=== PATIENT | female | born 1955 | race Caucasian/White ===

== ENCOUNTER 2018-11-16 00:20 | Outpatient (CLI) | payer BC, SELFPAY ==
--- NOTE | 2018-11-16 12:50 | DI.MAMMO_ITS ---
SYMPTOMS/DIAGNOSIS: SCREENING, Z12.31 MAMMOGRAM: Mammograms were interpreted according to the usual protocol including computer analysis with CAD system, tomosynthesis and C view imaging. The breasts are of moderate density with fairly symmetrical distribution of fibroglandular tissue. No dominant mass or clumped microcalcification identified in either breast. Current examination is compared with the previous examinations including July 2017 and there has been no gross interval change in appearance in comparison with the previous studies. CONCLUSION: No specific evidence of malignancy at this time. Routine screening examinations are suggested at yearly intervals due to the family history of breast carcinoma. Category 1, breast density category B. MQSA ASSESSMENT OF FINDINGS: Negative. Category 1. Patient will receive a letter notifying them of these results. BI-RADS category B. There are scattered areas of fibroglandular density.
== END 2018-11-16 00:40 ==
PROVIDERS: PCP Family Medicine; Visit Provider Family Medicine
DX: Z12.31 Encounter for screening mammogram for malignant neoplasm of breast (principal); Z80.3 Family history of malignant neoplasm of breast
CPT/HCPCS: 77063; 77067

== ENCOUNTER 2020-05-16 01:14 | Outpatient (CLI) | payer OTHER, SELFPAY ==
--- NOTE | 2020-05-16 | DI.MAMMO_ITS ---
EXAM: MG MAMMO SCREENING CLINICAL HISTORY: SCREENING, Z12.31. TECHNIQUE: Bilateral full field digital CC and MLO mammographic images were obtained with 3D tomosyn thesis and utilizing computer aided detection (CAD). COMPARISON: Prior mammograms dating back to 2011, the most recent being October 2018. Significant fa damien history. Her mother was diagnosed with breast cancer as was her maternal aunt, both postmenopau martha. FINDINGS: There are no CAD designations. In the left breast on 3D imaging there is a small 4 x 3 millimeter nodule located 4 cm in from the n ipple below the midline and slightly medial of center . This slightly lobulated well-defined nodule exhibits a tiny benign-appearing microcalcification therein. In the opposite-right breast 3D MLO pretty ging there is another similar size nodule evident approximately 4 cm in from the nipple. There are n o malignant-appearing microcalcifications in either breast. There is no significant architectural di stortion nor skin thickening-retraction. IMPRESSION: Single small nodule in each breast. Spot compression views and ultrasound recommended. BI-RADS Category 0 - Assessment Incomplete: Need additional imaging evaluation Breast Density - Category B - Scattered areas of fibroglandular density Breast density Category C or D implies that the patient has dense breast tissue. Dense breast tissue can make it harder to find cancer on a mammogram. Dense breast tissue is also associated with an incr eased risk of breast cancer. This information about the result of the mammogram report was provided to the patient to raise their awareness. Use this report when you speak with the patient about their risks for breast cancer, which includes their family history. At that time, you may recommend additional screening tests (Ultrasoun d or MRI) as these tests may add significant information. A negative radiographic report should not delay biopsy if a dominant or clinically suspicious mass is present. Up to ten percent of cancers are not identified on mammography. A negative report may reinforce clinical impression. Adenosis and dense breasts may obscure an underlying neoplasm. False positive reports average 6 to 10%. Patient will receive a letter notifying them of these results.
== END 2020-05-16 01:15 ==
LOC: DI 01:14
PROVIDERS: PCP Family Medicine; Visit Provider Family Medicine
DX: Z12.31 Encounter for screening mammogram for malignant neoplasm of breast (principal); R92.8 Other abnormal and inconclusive findings on diagnostic imaging of breast
CPT/HCPCS: 77063; 77067

== ENCOUNTER 2020-05-24 03:07 | Outpatient (CLI) | payer OTHER, SELFPAY ==
--- NOTE | 2020-05-24 | DI.MAMMO_ITS ---
EXAM: MG MAMMO SCREEN CALL BACK BI CLINICAL HISTORY: F/U MAMMO, LT BREAST NODULE, RT BREAST NODULE TECHNIQUE: Spot compression views and tomographic imaging were performed of both breasts.. COMPARISON: Exams from 2012 through 2019. FINDINGS: Cc and MLO spot-compression views performed bilaterally for small areas of nodularity. Left breast: There is a small nodule in the medial left breast with the small fatty hilum, consistent with an intramammary lymph node.No suspicious masses or suspicious microcalcifications are seen. Th ere has been no significant change from previous exams. Right breast: There is a small persistent circumscribed nodule with a central fatty hilum, consistent with an intramammary lymph node. This appears stable from recent exams. IMPRESSION: BI-RADS Category 2 - Benign Findings Yearly screening mammography is recommended. Breast Density - Category B, scattered fibroglandular densities.
== END 2020-05-24 03:08 ==
LOC: DI 03:07
PROVIDERS: PCP Family Medicine; Visit Provider Family Medicine
DX: Z12.31 Encounter for screening mammogram for malignant neoplasm of breast (principal); R92.8 Other abnormal and inconclusive findings on diagnostic imaging of breast; R59.0 Localized enlarged lymph nodes
CPT/HCPCS: 77063; 77067

== ENCOUNTER 2020-06-28 06:21 | Day surgery (SDC) | payer OTHER, SELFPAY ==
[2020-06-28 06:40] VITALS: BP 157/78; PULSE 66; RESP 16; TEMP 36.3; O2SAT 98
[2020-06-28] MEDS: Tropicam./Phenyleph. (1/2.5%) 5 ML BTL OS ×3 (06:47→07:01)
[2020-06-28] MEDS: Tetracaine 0.5% 4 ML BTL OS (07:25)
[2020-06-28] MEDS: Povidone-Iodine Ophth 30 ML BTL (07:26)
[2020-06-28] MEDS: Lidocaine 1% Pres-Free 5 ML VIAL (07:33)
[2020-06-28] MEDS: Duovisc Viscoelastic System EACH 1 EACH (07:37)
[2020-06-28] MEDS: Lidocaine 2% Jelly 6 ML SYR (07:37)
[2020-06-28] MEDS: Balanced Salt Soln.-PLUS 500 ML BAG (07:37)
--- NOTE | 2020-06-28 08:00 | W.PM.DSUDISC ---
Discharge Plan Disposition Patient Disposition: HOME Condition: Good Discharge Details Attending Provider: Krishna Gregg Primary Care Provider: Nika Coker Home Meds and New Rx's Prescriptions: No Action cholecalciferol (vitamin D3) 1,000 UNIT capsule 1,000 unit PO DAILY RF: 0 multivitamin [Daily Multi-Vitamin] 1 EACH tablet 1 ea PO DAILY RF: 0 aspirin 325 MG tablet 325 mg PO DAILY RF: 0 atenolol 50 MG tablet 50 mg PO DAILY RF: 0 atorvastatin 80 MG tablet 80 mg PO DAILY RF: 0 famotidine 40 mg tablet 40 mg PO DAILY PRNRF: 0 metformin 500 mg tablet extended release 24 hr 1,000 mg PO BID RF: 0 losartan 25 mg tablet 25 mg PO DAILY RF: 0 Discharge Instructions Stand Alone Forms: Post-op Topical Cataract, Yakov Orozco (DSU) Discharge Orders Discharge Orders: Discharge Order (Routine); Ordered 06/28/20 Ordered By: Krishna Gregg DS: Diagnosis Discharge Diagnosis (1) Posterior subcapsular age-related cataract of left eye: Status: Resolved (2) Nuclear sclerotic cataract of left eye: Status: Resolved (3) Cortical cataract of left eye: Status: Resolved
--- NOTE | 2020-06-28 08:01 | ROE_ITS ---
Date of service: 06/28/20 Time of Service: 08:01 Operative Note Operative Note DATE OF PROCEDURE: 06/28/20 PRE-OP DIAGNOSIS: Nuclear/cortical/posterior subcapsular cataract, left eye POST-OP DIAGNOSIS: same PROCEDURE: Cataract extraction using phacoemulsification with intraocular lens implant, left eye SURGEON: Krishna Gregg ANESTHESIA TYPE: Local By Surgeon and MAC Refer to Anesthesia Record PATHOLOGY: none sent COMPLICATIONS: None Patient was transported to: same day Patient's condition: stable Implants: [employer] / [employer] Tecnis [id number] Indications: Progressive decreased vision due to cataract, left eye Procedure Description: CATARACT SURGERY OPERATIVE REPORT PREOPERATIVE DIAGNOSIS: Nuclear/cortical/posterior subcapsular cataract, left eye POSTOPERATIVE DIAGNOSIS: Same OPERATION: Cataract extraction using phacoemulsification with posterior chamber intraocular lens implant, left eye. IOL: IOL Critical Care Physician/Model: [employer] / ASHLYN Tecnis [id number] IOL Power: + 20.0 diopters IOL Serial Number: [id number] Optic Diameter: 6.0mm Haptic/Overall Diameter: 13.0mm PHACO INFO: Ike [employer] Vision System with OZil and Active [employer]uid[employer] Cumulative Dispersed Energy (CDE): 10.3 seconds SURGEON: Krishna Gregg MD, ISAAC ANESTHESIA: Monitored Anesthesia Care (MAC), with local sub-tenon's anesthetic infiltration COMPLICATIONS: None SPECIMENS: None INDICATIONS FOR PROCEDURE: The patient is a 65-year-old lady with history of diminished visual acuity in her left eye. She is noted to have a significant nuclear/cortical/posterior subcapsular cataract in the left eye. The option of cataract surgery was offered to the patient and she felt she was symptomatic enough that she wished to proceed. PROCEDURE: The correct surgical eye was identified and marked as the left eye and the pupil was dilated in the preoperative area using mydriatics and cycloplegics. The dilated pupil size was 6.0 mm. Oral sedation was administered in the form of an Imprimis MKO Melt (midazolam 3mg/ketamine 25mg/ondansetron 2mg). The patient was brought to the operating room where cardiopulmonary monitoring was instituted and surgical time-out was performed, confirming the correct operative eye and IOL power. Topical anesthesia was administered and ophthalmic povidone-iodine 5% was instilled into the conjunctival fornices. Lidocaine gel was applied to the cornea and the lilian-ocular area was prepped with Betadine 10% solution and draped in the usual sterile fashion for intraocular surgery, including an aperture drape. A Tegaderm transparent film dressing was cut in half and used to cover the lashes and lid margins. Care was taken to sequester the lashes and lid margins under the Tegaderm dressing. A lid speculum was placed between the lids of the operative eye and the Juan-Shabnam operating microscope was maneuvered into position. Leon scissors were then used to make a conjunctival buttonhole approximately 6mm posterior to the limbus in the inferonasal quadrant. Blunt dissection was carried out to expose bare sclera, and a blunt-tipped sub-tenon?s anesthesia cannula was introduced and passed posteriorly along the globe where non- preserved plain lidocaine was injected into posterior sub-Tenon?s space. A sideport knife was used to make a paracentesis port superior/superiortemporally. Intraocular phenylephrine/lidocaine was injected into the anterior chamber. The anterior chamber was then filled with viscoelastic. A 2.4mm keratome knife was used to create a half-thickness groove at the limbus and then to construct a three-plane near-clear corneal tunnel extending 2.0mm into clear cornea in the temporal position. . A flap was raised on the anterior capsule and capsulorhexis forceps were used to complete a continuous curvilinear capsulorhexis of 5.5 mm. Balanced salt solution was then used to perform cortical cleaving hydrodissection and nuclear hydrodelineation until the lens could be freely rotated within the capsular bag. The lens nucleus was then disassembled and removed within the capsular bag and iris plane using phacoemulsification. Residual cortical material was removed using the 45-degree angled silicone I/A tip with 0.3mm port. The posterior capsule was carefully polished to remove as much residual lens epithelial cells as safely possible. The capsular bag was then inflated and the anterior chamber deepened with viscoelastic. The lens implant described above was inserted into the capsular bag using the ASHLYN [employer] Injector. A Kuglen hook was used to dial the IOL into position. Residual viscoelastic was then removed first from posterior to the IOL, then from the anterior chamber using the I/A handpiece. The lens implant was noted to center nicely within the capsular bag. The incisions were stromally hydrated, and the anterior chamber was reformed using BSS. Then 0.5cc of moxifloxacin 1.0mg/ml were injected into the capsular bag and anterior chamber. The incisions were checked with a Weck spear and found to be secure. Several drops of ophthalmic povidone-iodine 5% were then applied to the eye followed by two drops of Imprimis combination prednisolone/moxifloxacin/nepafenac solution. The drapes were removed and a clear plastic protective eye shield was placed over the eye. The patient was then returned to Same Day Surgery in stable condition.
[2020-06-28 08:31] VITALS: BP 130/67; PULSE 53; RESP 16; TEMP 36.7; O2SAT 97
== END 2020-06-28 08:36 | disposition home or self-care (01) ==
PROVIDERS: PCP Family Medicine; Visit Provider Ophthalmology
PROC: (CPT 66984; principal; 2020-06-28 07:30)
DX: H25.12 Age-related nuclear cataract, left eye (principal); H25.042 Posterior subcapsular polar age-related cataract, left eye; H25.012 Cortical age-related cataract, left eye; I10 Essential (primary) hypertension
CPT/HCPCS: 66984; V2632

== ENCOUNTER 2020-08-16 09:05 | Day surgery (SDC) | payer OTHER, SELFPAY ==
[2020-08-16 09:15] VITALS: BP 148/73; PULSE 76; RESP 18; TEMP 36.6; O2SAT 99
[2020-08-16] MEDS: Lactated Ringers 1,000 ML 80 ML IV (09:27)
--- NOTE | 2020-08-16 10:11 | W.ANESPRE ---
General Info Date of Service Date Performed: 08/16/20 Height: 5 ft 3.5 in Weight: 83 kg Body Mass Index (BMI): 31.8 Surgical Procedure: Operation Date: 08/16/20 10:35 Proposed Procedures Side Surgeon norman Luna, Meds Allergies and Home Medications Allergies Allergy/AdvReac Type Severity Reaction Status Date / Time Penicillins Allergy Severe Skin Rash Unverified 08/16/20 09:19 lisinopril AdvReac Mild Verified 08/16/20 09:19 Home Medication Medication Instructions Recorded cholecalciferol (vitamin D3) 1,000 unit PO DAILY 11/16/12 multivitamin [Daily Multi-Vitamin] 1 ea PO DAILY 07/02/14 aspirin 325 mg PO DAILY tab-cap 10/03/15 atenolol 50 mg PO DAILY tab-cap 10/03/15 atorvastatin 80 mg PO DAILY tab-cap 10/03/15 famotidine 40 mg tablet 40 mg PO DAILY PRN 05/29/20 losartan 25 mg tablet 25 mg PO DAILY 05/29/20 metformin 500 mg tablet,extended 1,000 mg PO BID tab-cap 05/29/20 release 24 hr ascorbic acid (vitamin C) 500 mg 500 mg PO DAILY 08/08/20 capsule bisacodyl 5 mg tablet,delayed 5 mg PO ONCE #4 tab 08/08/20 release polyethylene glycol 3350 17 238 g PO ONCE #238 g 08/08/20 gram/dose oral powder Current Visit Medications: Current Medications Generic Name Dose Route Start Last Admin Trade Name Freq PRN Reason Stop Dose Admin Hyoscyamine Sulfate 0.125 mg 08/15/20 23:50 Hyoscyamine 0.125 Mg Sl/Oral/Chew SL DIRECTED PRN Ringer's Solution 1,000 mls @ 80 mls/hr 08/16/20 06:00 08/16/20 09:27 IV 09/14/20 23:59 80 mls/hr INFUSION ROSAS Administration IV Miscellaneous Supplies 1 each 08/16/20 06:00 Iv Access IV 09/14/20 23:59 DIRECTED ROSAS Ondansetron HCl 4 mg 08/15/20 23:50 Ondansetron 4 Mg/2 Ml Vial IVP Q4H PRN PRN Nausea / Vomiting Sodium Chloride 0 ml 08/16/20 06:00 Normal Saline Flush 10 Ml Syr IV 09/14/20 23:59 PRN PRN Sodium Chloride 0 ml 08/16/20 06:00 Normal Saline 10 Ml Vial IJ 09/14/20 23:59 DIRECTED PRN Sterile Water 0 ml 08/16/20 06:00 Water,Injection,Sterile 10 Ml Vial IJ 09/14/20 23:59 DIRECTED PRN PFSH Active Problems Active Problems: Problem Status Onset Code Cortical cataract of left eye H26.9 Nuclear sclerotic cataract of left eye H25.12 Posterior subcapsular age-related cataract of left eye H25.042 Medical History Medical History Benign hypertension Endometrial cancer GERD (gastroesophageal reflux disease) History of adenomatous polyp of colon Hyperlipidemia Hypertension Type II diabetes mellitus Surgical History Surgical History History of colonoscopy (~2014) Hx of cataract removal with insertion of prosthetic lens Hysterectomy, Laproscopic endometrial ca Oophrectomy, Both Tobacco Smoking/Tobacco Use Status: Former Tobacco Use Alcohol Alcohol Intake: never Substance Use Substance use: Never Substance use type: does not use Vital Signs and Lab Results Vital Signs Most Recent Vital Signs in EMR: Most Recent Vital Signs Temp Pulse Resp BP Pulse Ox 36.6 C 76 18 148/73 H 99 08/16/20 09:15 08/16/20 09:15 08/16/20 09:15 08/16/20 09:15 08/16/20 09:15 Point of Care Results Point of Care Results: Finger Stick Blood Glucose 115 08/16/20 09:41 Lab Results Blood Type / Crossmatch: No Data to Display Complete Blood Count: No Data to Display Complete Metabolic Panel: No Data to Display Liver Function Panel: No Data to Display Coagulation Panel: No Data to Display Cardiac Panel: No Data to Display Arterial Blood Gas: No Data to Display Venous Blood Gas: No Data to Display Pancreas Panel: No Data to Display Thyroid Panel: No Data to Display Infectious Disease: No Data to Display Blood Cultures: No Data to Display Toxicology Panel: No Data to Display Anesthesia Assessment and Plan Anesthesia History Personal History: No History of Anesthesia Complications Family History: No Family History of Anesthesia Complications Exercise Tolerance Exercise Tolerance: Metabolic Equivalents>4 Pertinent Negatives Pertinent Negatives: No Symptoms of GERD (Mostly resolved, rare symptoms) Cardiac & Pulmonary Exam Cardiac Exam: Normal S1/S2 Heart Sounds Pulmonary Exam: Clear Bilateral Breath Sounds Airway Exam Known Difficult Airway: No Mallampati Class: 1 Mouth Opening: Normal (> 3cm) Thyromental Distance: Greater than 3 cm Neck Range of Motion: Full ROM Neck Circumference: Normal Teeth Condition: Advised tooth loss possible given current condition (indicate tooth) ASA Classification ASA Score: ASA 2 Emergency Case?: No NPO Status NPO Status: NPO Clears >2 hours, Solids >8 hours Anesthesia Plan Resuscitation Status: Full Code Anesthesia Technique: General Anesthesia Airway Planned: Natural Airway Monitors Used: Standard Monitors
[2020-08-16 10:13] VITALS: BMI 31.8
--- NOTE | 2020-08-16 11:30 | W.COLOREPORT ---
Date of service: 08/16/20 Time of Service: 11:30 Colonoscopy Report Date of procedure: 08/16/20 Pre-op diagnosis general: A. polyps/+family Hx CRC Retraction Time: 10 Procedure Description: After informed consent was obtained the patient was taken to the procedure room and placed in a left decubitous position. Monitors were applied and a time out was done. The patients name, date of , procedure, allergies to medications and metal in their body was reviewed. The patient was then sedated. Once sedated and comfortable a rectal exam was done. External hemorrhoids ntoed. Internal exam revealed a normal sphincter tone and no palpable masses. The scope was then introduced and retrofelexed. No internal hemorrhoids were identified. The scope was then advanced to the cecum w/out difficulty. The TI and appendiceal orifice were identified. The prep was good. The scope was then slowly retracted over 10 minutes back into the rectum. She had x2 small, less than 5 mm, flat polyps that were removed. 1 is at 30 cm and 1 is at the rectum. These are both removed with a cold biting forcep. All specimen is retrieved and no bleeding is noted. She does have moderate diverticular disease this is mostly concentrated in the sigmoid colon. But she does have a few small scattered diverticuli do carry all the way over to the right side. There is no signs of active bleeding or infection.. The scope was removed and the patient was woken up and taken back to Same day surgery in stable condition. The patient tolerated the procedure well and there were no immediate complications. Follow up: The patient should follow up in 5 years unless they develop changes in bowel habits or other new gastrointestinal complaints.
--- NOTE | 2020-08-16 11:45 | BOWEL_PTH ---
PATIENT: Dulce Wei LOC: [facility] U#:[id number] AGE/SX: 65/F ROOM: RE08/16/[address]: Lissette Luna : 1955 BED: DIS: 08/16/2020 SPEC #: [id number] RECD: 08/16/20 12:27 STATUS: ANETTE REMine #: [id number] ANEUDY: 08/16/20 11:[address]: Lissette Luna DEPT: Surgical Specimen RECD BY: Brisa Wilcox ENTERED: 08/16/20 12:29 SP TYPE: Bowel OTHR DR: Nika Coker Tissues: 1 - BIOPSY BOWEL 2 - BIOPSY BOWEL Procedures: GROSS AND MICRO LEVEL 4 Comments: [id number]
[2020-08-16 12:00] VITALS: BP 115/54; PULSE 63; RESP 16; TEMP 36.5; O2SAT 96
--- NOTE | 2020-08-16 12:05 | W.ANESPOSTOP ---
Postoperative Evaluation Date, Time and Location Date Performed: 08/16/20 Time Performed: 12:05 Patient Location: Day Surgery Unit Vital Signs Most Recent Imported Vital Signs: Most Recent Vital Signs Temp Pulse Resp BP Pulse Ox 36.6 C 76 18 148/73 H 99 08/16/20 09:15 08/16/20 09:15 08/16/20 09:15 08/16/20 09:15 08/16/20 09:15 Most Recent Manually Entered Vital Signs: Adult Blood Pressure: 115/54 Heart Rate: 63 Respirations: 16 Oxygen Saturation (%): 97 Temperature (C): 36.5 C Pain Score (0-10 Scale): 0 Assessment Mental Status: Awake (Alert & Oriented to Patient Baseline) Airway and Respiratory Function: Patent airway with normal (patient baseline) respiratory exam Cardiovascular Function: Hemodynamically Stable Hydration Status: Adequately Hydrated Nausea & Vomiting: No Nausea or Vomiting Pain: Pt. Denies Any Pain Peripheral Nerve Block: Patient did not receive a nerve block
[2020-08-16 12:06] VITALS: BP 115/54; PULSE 63; RESP 16; TEMPC 36.5; O2SAT 97
--- NOTE | 2020-08-16 12:15 | W.PM.DSUDISC ---
Discharge Plan Disposition Patient Disposition: HOME Condition: Good Discharge Details Reason For Visit: colon scope Attending Provider: Lissette Luna Primary Care Provider: Nika Coker Home Meds and New Rx's Prescriptions: Continued ascorbic acid (vitamin C) 500 mg capsule 500 mg PO DAILY RF: 0 cholecalciferol (vitamin D3) 1,000 UNIT capsule 1,000 unit PO DAILY RF: 0 multivitamin [Daily Multi-Vitamin] 1 EACH tablet 1 ea PO DAILY RF: 0 atenolol 50 MG tablet 50 mg PO DAILY RF: 0 atorvastatin 80 MG tablet 80 mg PO DAILY RF: 0 famotidine 40 mg tablet 40 mg PO DAILY PRNRF: 0 metformin 500 mg tablet extended release 24 hr 1,000 mg PO BID RF: 0 losartan 25 mg tablet 25 mg PO DAILY RF: 0 Discontinued bisacodyl [Dulcolax (bisacodyl)] 5 mg tablet,delayed release (DR/EC) 5 mg PO ONCE Qty: 4 RF: 0 polyethylene glycol 3350 17 gram/dose powder 238 g PO ONCE Qty: 238 RF: 0 aspirin 325 MG tablet 325 mg PO DAILY RF: 0 Discharge Instructions Additional Instructions: [facility] Colonoscopy Post-Op Instructions Instructions for Everyone who is given Anesthesia: For your safety, please do the following for the next twenty-four (24) hours: *Do Not operate a motor vehicle (car, truck, motorcycle, etc.) *Do Not drink alcoholic beverages or use any recreational drugs for the first 24 hours or while taking pain medications. The medications in your body may have a reaction that can be dangerous. *Do Not make any important decisions or sign any important papers. Findings: x2 small polyps Diverticula No ASA/NSAID's x 5 yrs Follow up: Repeat in 5 yrs time 1. No lifting over 20 pounds or strenuous activity for the first 24 hours after your procedure. After 24 hours there are no restrictions on your activity but you may feel fatigued for a few days. 2. After you arrive home you may have a light meal and return to your normal diet as you can tolerate it without feeling sick to your stomach. 3. You may have a bloated, gaseous feeling in your belly (abdomen) after a colonoscopy. Passing gas and belching will help. Walking or lying down on your left side with your knees flexed may relieve the discomfort. Call the office at [phone] (Office) or [phone] (Hospital) right away if you notice any of the following: a.Vomiting of blood or ?coffee ground stools?. b.Rectal bleeding 1Tbsp, blood clots or continuous bleeding. c.Severe belly (abdominal) pain. d.A hard distended belly (abdomen) and an inability to pass gas. 4. Please don?t expect to have a normal BM (bowel movement) for 2-3 days after your procedure. 5. If there are questions regarding the findings of your procedure, please contact your doctor 6. If you are unable to contact your doctor with a problem, contact the hospital at [phone]. 7. Continue all your regular medications unless directed otherwise. I understand the above instructions and have no questions. Signature of Patient or Adult Escort Name of Responsible Adult Escort Signature of Nurse Date/Time DIVERTICULAR DISEASE OVERVIEW???A diverticulum is a pouch-like structure that can form through points of weakness in the muscular wall of the colon (ie, at points where blood vessels pass through the wall). Diverticulosis affects men and women equally. The risk of diverticular disease increases with age. It occurs throughout the world but is seen more commonly in developed countries. WHAT IS DIVERTICULAR DISEASE? Diverticulosis???Diverticulosis merely describes the presence of diverticula. Diverticulosis is often found during a test done for other reasons, such as flexible sigmoidoscopy, colonoscopy, or barium enema. Most people with diverticulosis have no symptoms and will remain symptom free for the rest of their lives. A person with diverticulosis may have diverticulitis, or diverticular bleeding. Diverticulitis???Inflammation of a diverticulum (diverticulitis) occurs when there is thinning and breakdown of the diverticular wall. This may be caused by increased pressure within the colon or by hardened particles of stool, which can become lodged within the diverticulum. The symptoms of diverticulitis depend upon the degree of inflammation present. The most common symptom is pain in the left lower abdomen. Other symptoms can include nausea and vomiting, constipation, diarrhea, and urinary symptoms such as pain or burning when urinating or the frequent need to urinate. Diverticulitis is divided into simple and complicated forms. ?Simple diverticulitis, which accounts for 75 percent of cases, is not associated with complications and typically responds to medical treatment without surgery. ?Complicated diverticulitis occurs in 25 percent of cases and usually requires surgery. Complications associated with diverticulitis can include the following: ?Abscess ? a localized collection of pus ?Fistula ? an abnormal tract between two areas that are not normally connected (eg, bowel and bladder) ?Obstruction ? a blockage of the colon ?Peritonitis ? infection involving the space around the abdominal organ ?Sepsis ? overwhelming body-wide infection that can lead to failure of multiple organs Diverticular bleeding???Diverticular bleeding occurs when a small artery located within a diverticulum is eroded and bleeds into the colon. Diverticular bleeding usually causes painless bleeding from the rectum. In approximately 50 percent of cases, the person will see maroon or bright red blood with bowel movements. Is bleeding with a bowel movement normal?It is not normal to see blood in a bowel movement; this can be a sign of several conditions, most of which are not serious (eg, hemorrhoids) but some of which are serious and require immediate treatment. Anyone who sees blood after a bowel movement should consult with their healthcare provider to determine if further testing or evaluation is needed. DIVERTICULOSIS AND DIVERTICULITIS DIAGNOSIS???Diverticulosis is often found during tests performed for other reasons. ?Barium?enema ? This is an x-ray study that uses barium in an enema to view the outline of the lower intestinal tract. This is an older test and has been largely replaced by computed tomography (CT) scan. ?Flexible sigmoidoscopy ? This is an examination of the inside of the sigmoid colon with a thin, flexible tube that contains a camera. ?Colonoscopy ? This is an examination of the inside of the entire colon. ?CT scan ? A CT scan is often used to diagnose diverticulitis and its complications. If diverticulitis (not just diverticulosis) is suspected, the above three tests should not be used because of the risk of perforation. TREATMENT Diverticulosis???People with diverticulosis who do not have symptoms do not require treatment. However, most clinicians recommend increasing fiber in the diet, which can help to bulk the stools and possibly prevent the development of new diverticula, diverticulitis, or diverticular bleeding. Fiber is not proven to prevent these conditions in all patients but may help to control recurrent episodes in some. Increase fiber???Fruits and vegetables are a good source of fiber.? Fiber content of packaged foods can be calculated by reading the nutrition label. Seeds and nuts???Patients with diverticular disease have historically been advised to avoid whole pieces of fiber (such as seeds, corn, and nuts) because of concern that these foods could cause an episode of diverticulitis. However, this belief is completely unproven. We do not suggest that patients with diverticulosis avoid seeds, corn, or nuts. Diverticulitis???Treatment of diverticulitis depends upon how severe your symptoms are. Home treatment???If you have mild symptoms of diverticulitis (mild abdominal pain, usually left lower abdomen), you can be treated at home with a clear liquid diet and oral antibiotics. However, if you develop one or more of the following signs or symptoms, you should seek immediate medical attention: ?Temperature >100.1?F (38?C) ?Worsening or severe abdominal pain ?An inability to tolerate fluids Hospital treatment???If you have moderate to severe symptoms, you may be hospitalized for treatment. During this time, you are not allowed to eat or drink; antibiotics and fluids are given into a vein. If you develop an abscess of the colon, you may require drainage of the abscess (usually performed by placing a drainage tube across the abdominal wall) or by surgically opening the affected area. Surgery???If you develop a generalized infection in the abdomen (peritonitis), you will usually require an emergency operation. A two-part operation may be necessary in some cases. ?The first operation involves removal of the diseased colon and creation of a colostomy. A colostomy is an opening between the colon and the skin, where a bag is attached to collect waste from the intestine. The lower end of the colon is temporarily sewed closed to allow it to heal. ?Approximately three to six months later, a second operation is performed to reconnect the two parts of the colon and close the opening in the skin. You are then able to empty your bowels through the rectum. Sometimes patients require up to a year to recover from the first operation, depending on how sick they were. In non-emergency situations, the diseased area of the colon can be removed and the two ends of the colon can be reconnected in one operation, without the need for a colostomy. Surgery versus medical therapy???An operation to remove the diseased area of the colon may be necessary if you do not improve with medical therapy. After an episode of uncomplicated diverticulitis, elective surgery is generally not required as the risk of another attack or requiring emergency surgery is low. However, patients with persistent symptoms attributable to diverticulitis, a history of complicated diverticulitis, or a compromised immune system should be evaluated for possible surgery to prevent another attack. In such patients, another attack has been associated with a higher risk of complications or . Of course, the decision will also depend in part upon your other medical conditions and ability to undergo surgery. In many cases, an elective operation can be performed laparoscopically, using small incisions, rather than the typical vertical (up and down) abdominal incision. Laparoscopic surgery usually allows you to recover more quickly and shortens the hospital stay. After diverticulitis resolves???After an episode of diverticulitis resolves, if you have not had a recent colonoscopy, the entire length of the colon should be evaluated to determine the extent of disease and to rule out the presence of abnormal lesions such as polyps or cancer. Recommended tests include colonoscopy, barium enema and sigmoidoscopy, or CT colonography. Diverticular bleeding???Most cases of diverticular bleeding resolve on their own. However, some people will need further testing or treatment to stop bleeding, which may include a colonoscopy, angiography (a treatment that blocks off the bleeding artery), bleeding scan, or surgery. DIVERTICULAR DISEASE PROGNOSIS Diverticulosis???Over time, diverticulosis may cause no problems or it may cause episodes of bleeding and/or diverticulitis. Approximately 15 to 25 percent of people with diverticulosis will develop diverticulitis, while 5 to 15 percent will develop diverticular bleeding. Diverticulitis???Approximately 85 percent of people with uncomplicated diverticulitis will respond to medical treatment, while approximately 15 percent of patients will need an operation. After successful treatment for a first attack of diverticulitis, one-third of patients will remain asymptomatic, one-third will have episodic cramps without diverticulitis, and one-third will go on to have a second attack of diverticulitis. The prognosis tends to remain similar following a second attack of diverticulitis. Only 10 percent of people remain symptom-free after a second attack. Subsequent attacks tend to be of similar severity, not increasing in severity as previously believed. ? ? ? High Fiber Diet What is Dietary Fiber? All fiber comes from plants, bushes, [place] or trees.? Of course, the ones that we eat provide us with fruits, vegetables and grains.? There are many different types of fiber but the three that are most important to the health of the body are: Insoluble Fiber This fiber does not dissolve in water, nor is it fermented by the bacteria residing in the colon.? Rather, it retains water and in so doing, helps to promote a larger, bulkier and more regular bowel activity.? This, in turn, may be important in preventing disorder such as diverticulosis and hemorrhoids, and in sweeping out certain toxins and cancer causing carcinogens.? Sources of insoluble fiber are: ? whole grain wheat and other whole grains ? corn bran, including popcorn, unflavored and unsweetened ? nuts and seeds ? potatoes and the skins from most fruits from trees such as apples, bananas and avocados ? many green vegetables such as green beans, zucchini, celery and cauliflower ? some fruit plants such as tomatoes and kiwi Soluble Fiber These fibers are fermented or used by the colon bacteria as a food source or nourishment.? When these good bacteria grow and thrive, many health benefits occur in both the colon and the body.? Soluble fiber is present in some degree in most edible plant foods, but the ones with the most soluble fiber include: ? legumes such as peas and most beans, including soybeans ? oats, rye and barley ? many fruits such as berries, plums, apples bananas and pears ? certain vegetables such as broccoli and carrots ? most root vegetables ? psyllium husk supplement products Prebiotic Soluble Fiber These are relatively newly discovered soluble plant fibers.? The technical name for this fiber is inulin or fructan. When these soluble fibers are fermented by the good colon bacteria, some further significant health benefits have been shown to occur by research in many medical centers. These soluble prebiotic fibers occur in significant amounts in: ? asparagus ? yams ? onions ? garlic ? bananas ? leeks ? agave ? chicory and other root vegetables such as [place] artichokes ? wheat, rye and barley (smaller amounts) Benefits of a High Fiber Diet The health benefits of a high fiber diet, consumed on a regular basis and reaching recommended amounts (below), are now fairly well-defined. There are some additional benefits in the early research stage with the prebiotic soluble fibers. What is now known regarding a high fiber diet include: Bowel Regularity A high fiber diet promotes regularity with a softer, bulkier and regular stool pattern. This decreases the chance of hemorrhoids, diverticulosis and perhaps colon cancer. Cholesterol and Reduced Triglycerides The soluble fibers are the ones that will reduce cholesterol levels when used on a regular basis. Psyllium husk and prebiotic soluble fiber will also reduce cholesterol. They may also reduce the incidence of coronary heart disease. Oats, flax seeds and legumes or beans are the recommended fibers. Colon Polyps and Cancer It is still not certain if a high fiber diet helps prevent colon cancer. Considerable research suggests that this may occur. Certainly it makes sense to increase regularity and so speed the movement of cancer causing carcinogens through the bowel. In addition, reducing a heavy meat diet reduces the bile flow from the liver in a favorable way. This, too, reduces the amount of carcinogens that reach and are manufactured in the colon. Finally, a high fiber diet, including prebiotic soluble fiber, increases the integrity and health of the wall of the colon. The risk of cancer may be reduced. Colon Wall Integrity A high fiber diet changes the bacterial makeup of the colon toward a more favorable balance. For instance, it is known that those people with obesity, diabetes type 2 and inflammatory bowel disease have a predominance of bad bacteria in the colon. This, in turn, may render the bowel wall weak and allow bacteria and, indeed, even toxins to seep through. A high fiber diet with a modest reduction in animal and meat products may return the bacterial makeup to a more positive balance. This, in particular, has been seen when the soluble fiber prebiotics are added to the diet. Blood Sugar Soluble fiber such as in legumes (beans), oats and in prebiotic fibers slows the absorption of blood sugar and so helps regulate the sugar in the blood. Insoluble fiber on a regular basis is associated with reduced risk of type 2 diabetes. Weight Loss High fiber diets are more filling and give a sense of fullness sooner than an animal and meat based diet does. In addition, the soluble prebiotic fibers have been shown to turn off the hunger hormones produced in the wall of the gut and to increase the hormones that give a sense of fullness. Those hormones are made in the wall of the gut. New medical research has shown that the bacterial makeup in the colon in overweight people is abnormal to the extent that they manufacture and absorb almost twice the number of calories through the colon wall as do normals. Prebiotic fibers (below) will help change this hormonal balancein a favorable way. Bacteria and the Function of the Colon The colon finishes the digestive process. Hopefully, the waste products move through in a nice regular manner. Insoluble fibers help this process by retaining water and so producing a bulkier, softer stool, which is easy to pass. The additional role of the colon is to provide a home for an enormous number of micro-organisms, mostly bacteria. Recent research has shown that there are over 1,000 species of bacteria with a total bacterial count ten times the number of cells in the body. These bacteria play a major role in keeping the colon wall itself healthy. In addition, these good bacteria produce a very strong immune system for the body. They significantly increase calcium absorption and bone density. They provide other documented benefits. It is the soluble fibers in the diet that are so effective in stimulating the growth of good colon bacteria. How Much is Enough? The amount of fiber in food is measured in grams.? National nutritional authorities recommend the following amounts of dietary fiber daily. Under Age 50? Over Age 50 Men? 38 grams? 30 grams Women??? 25 grams? 21 grams For a week or so, it is best to tally the amount of fiber you are consuming.? Boxed and packaged foods will have the amount of fiber per serving on the nutrition label. Which Fibers and Which Foods are Best? As noted, healthy fiber is only found in plants. The three major categories are whole grains, fruits and vegetables. Whole Grains Wheat, oats, barley, wild or brown rice, amaranth, buckwheat, bulgur, corn, millet, quinoa, rye, sorghum, teff and triticals. By far, wheat, oats and wild or brown rice are most common. Always buy whole grain products. White bread, baked goods and rolls almost always are made from wheat flour. Wheat flour is white because most of the fiber, vitamins and other nutrients have been removed. Try not buy enriched grains. What this means is that simple white flour has had vitamins added to it by the foreign banknote teller trader. The word, enriched, implies a good and healthy product. On the contrary, enriched means that most of the fiber has been removed and a few vitamins added. Fruits Fruits come from trees such as apple and pear or from bushes or [place]. You should eat a wide variety of fruits, preferably with every meal. In many cases, the skin of a fruit such as apple will contain much of the insoluble fiber while the pulp contains most of the soluble fiber. To the extent possible, buy organic fruits as these will have little or no pesticides. Always wash fruit. Vegetables Eat a wide variety of vegetables. They should be a mainstay of lunch and dinners. Frozen vegetables retain as much nutrition and fiber as fresh vegetables. As with fruit, try to buy organic to reduce any residual pesticide ingestion. Wash fresh vegetables thoroughly. Cruciferous vegetables such as broccoli, [place] sprouts and cauliflower contain certain chemicals such as sulforaphane. This substance has very strong anti-cancer properties and should be eaten frequently. Legumes, Beans, Peas and Soybeans These vegetables have plenty of soluble fiber and should be part of a varied vegetable intake. Beans, in particular, contain a certain type of fiber that may lead to harmless gas or bloating. Nuts and Seeds These are rich sources of fiber and are a good substitute for sweets such as candies and baked sweet goods. While nuts and seeds are rich in fiber, they also contain vegetable fat and so can and do add calories. Read the Labels As noted, fresh and frozen foods are usually better.? They have good nutrition and few, if any, chemicals added to them.? When buying packaged foods and, in particular grains, look for three things: ? The first word on the label should be whole, such as whole wheat or whole grain. ? Check out the calories and the amount of fiber in a serving. ? How many and what other additives or chemicals are added.? Fewer is always better.? Do you know what each additive does?? Some are added not for the benefit of the media planner / buyer but rather for manufacturers.? These could and do include sugar, artificial flavor, chemicals to prevent oxidation and spoilage, emulsifiers to blend the product.? You have to be a latex caster. Fiber Facts, Nuggets and Pearls ? For breakfast you can easily get the day started well by using a high fiber, whole grain cereal.? Check the labels.? Add fruit such as blueberries and bananas.? If you are an egg eater, use whole wheat or grain toast.? Adding wheat germ gives you a good fiber kick. ? Always use whole grain or wheat with rolls and sandwiches.? Does your fast food store not have them?? Perhaps you look elsewhere.? Eating an occasional black wagner or veggie burger provides variety. ? Snacks should consist of fruit and/or nuts.? While nuts are loaded with fiber, they are an energy rich food, meaning they have a lot of calories in a small packet. ? Fruit juices should contain pulp.? Clear juices such as clear orange, pear or apple juice contain little fiber and have a lot of fructose.? Prune juice is usually high in fiber. ? Homemade soups ? adding fresh or frozen vegetables to a chicken or vegetable stock is a good way to start homemade soup. ? Salads ? adding cooked and then chilled vegetables provide great flavoring to almost any salad.? Remember, a willams salad has lots of cooked corn in it.? Small slices of apples or oranges and nuts such as chopped walnuts or sliced almonds always adds taste, variety and fiber to almost any salad. ? Fruit ? Try to eat fruit of some type with almost every meal. ? Rethink how you place the various foods on your dinner plate.? Reducing the portions of the meat or animal food portion to the side with equal or more portions of vegetables, legumes and fruits portion always allows for more fiber.? There was never anything magic about making the meat or animal food portion the main part of the dinner plate.? Eating from smaller plates can, over time, trick your mind and terminal press operator habit of using a dinner plate.? Again, there is nothing magic in an 11, 12, or 13 inch dinner plate. Fiber Supplements There are a variety of fiber supplements available on the food or pharmacy shelves. Psyllium This soluble plant fiber has been used in [place] for over 2,000 years. It is a soluble fiber with mucilage in it. This acts to retain a lot of water and also is fermented by colon bacteria. When 7 grams a day are used, it does lower cholesterol. Metamucil in various forms is psyllium. Methyl Cellulose All the cellulose products come from finely ground wood chips which are then treated in a variety of ways such as boiling in acids. Methyl cellulose is an insoluble fiber which does dissolve in water. It is also an emulsifier, meaning it blends oils and water. Citrucel is methyl cellulose (MC). MC may not be appropriate for Crohn?s disease or ulcerative colitis as several medical studies have shown that certain emulsifiers dissolve the mucous lining of the colon in animals prone to Crohn?s disease. This then allows bacteria to invade the underlying tissue. Inulin Inulin is a soluble prebiotic fiber found in many foods and which are fermented mostly in the left side of the colon. It is available in a supplement as generic inulin and in Fiber Choice. Oligofructose FOS These are also prebiotic fibers. They are fermented very quickly in the right side of the colon. [employer]www.[employer]/ This product is a combination of oligofructose, which feeds the bacteria in the right side of the colon and inulin, which does the same in the left side of the colon. There seems to be a benefit for this particular formula based on medical research. Prebiotic Soluble Fiber These may be the healthiest of all the soluble fibers.? They grow in many plants and have had a great deal of research done on them in the last 10-15 years.? These fibers are found in asparagus, yams and other root vegetables such as chicory, garlic, onion, leeks and in smaller amounts in wheat.? This research has shown the following: ? Increase in good and decrease in bad colon bacteria ? Increase calcium absorption and enhanced bone mass ? Enhanced immune system ? Appetite and weight control by changing the hormone appetite signals to the brain ? May decrease colon cancer incidence ? Reduce or correct a leaky colon Eating a wide variety of plant food up to the recommended amount will likely give you enough prebiotic fiber. Supplements such as [employer]/ can be added to the diet. Short Chain Fatty Acids (SCFA) Some rather remarkable research findings have shown that one of the benefits of ingesting a lot of soluble fiber, in particular the prebiotic ones, results in larger amounts of SCFAs in the colon.? These SCFAs are made by the good bacteria in the colon such as Bifidobacter and Lactobacillus.? These small molecules have been shown to do the following: ? Enhance the health and integrity of the colon wall ? Provide nourishment for the cells that actually line the colon ? Increases the acidity of the colon which is a very real health benefit ? Stabilize blood sugar for diabetics ? Reduce blood cholesterol and triglyceride ? Significantly enhance immunity ? May be a benefit for Crohn?s disease and ulcerative colitis patients Fiber and Gas Everyone has intestinal gas and that is a good thing.? It means that bacteria, hopefully the good ones, are thriving.? The normal amount of flatus passed each day depends on sex and what is eaten.? The normal number of flatus is 10-20 times a day.? When the bacteria that make intestinal gases are growing, it also means that other good bacteria are using the same fibers to grow and produce multiple health benefits, including the production of healthy short-chain fatty acids.? These substances are produced quietly in the colon and produce many health-related outcomes. Soluble fiber should always be used in a gradual manner.? If too much is consumed at any one time, then excess, but harmless, intestinal gas can occur.? People with irritable bowel syndrome are particularly prone to bloating and mild cramping.? In this instance, soluble fiber in the diet or supplement should be used in small doses and increased gradually. Finally, prebiotic fibers tend to cause the production of short-chain fatty acids which acidify the colon.? This, in turn, reduces or stops the growth of bacteria that make the smelly hydrogen sulfide gases that produce noxious flatus.? People who consume many vegetables with prebiotics or take a prebiotic fiber supplement often have non-odoriferous flatus. Fiber and Irritable Bowel Syndrome Irritable bowel syndrome (IBS) is one of the most common disorders of the lower digestive tract.? The symptoms of IBS can be quite varied.? They can be a mix of several symptoms such as constipation, diarrhea, crampy abdominal discomfort, bloating and gas.? An attack of IBS can be triggered by emotional tension and anxiety, poor dietary habits and certain medications.? It is now known that infections in the intestine can lead to long-term IBS symptoms.? Increased amounts of fiber in the diet can help relieve the symptoms of irritable bowel syndrome by producing soft, bulky stools.? This helps to normalize the time it takes for the stool to pass through the colon.? Recent medical research with newer techniques has shown some surprising and dramatic findings for IBS patients.? Specifically, there is a very significant and abnormal shift of bacteria from those that provide health benefits to those bad bacteria that we really do not want in the gut.? The technical name for this bad group of bacteria is called Firmicutes.? Along with this abnormal bacterial collection, there is a smoldering low-grade inflammation in the gut wall that may contribute to symptoms.? The goal for IBS patients should be to gradually increase the soluble dietary fibers in the diet so as to promote the growth of good bacteria and so suppress the bad ones along with the associated inflammation. IBS patients need to be careful of the amount of soluble fiber they consume.? The reason for this is that, while the good colon bacteria thrive on these fibers and produce health benefits, other gas-forming bacteria may generate excessive but harmless gas and subsequent bloating.? Thus, soluble plant fibers or a dietary prebiotic supplement should be taken in small initial doses and then gradually increased to tolerance. Fiber and Colon Polyps/Cancer Colon cancer is a major health problem. This disease is most common in Western cultures. It is not seen very often in rural cultures where the diet is mostly plant based. Usually, colon cancer starts out as a colon polyp, a benign mushroom-shaped growth. In time it grows, and in some people it becomes cancerous. Colon cancer is usually always curable if polyps are removed when found or if surgery is performed at an early stage. It is now known that people can inherit the risk of developing colon cancer, but diet is important, too. As noted, there is a very low rate of colon cancer in residents of countries where grains are unprocessed and retain their fiber. It seems that in the Western world, cancer-containing agents (carcinogens) remain in contact with the colon wall for a longer time and in higher concentrations. So, a large bulky stool may act to dilute these carcinogens by moving them through the bowel more quickly. Less carcinogenic exposure to the colon may mean fewer colon polyps and less cancer. A very current review of the entire world?s literature on the effect of fiber on colon polyps and cancer prevention has shown rather clearly that for every 10 grams of fiber added to the diet, there is a 10% reduction in incidence of colon cancer. So the recommended 30 gram fiber diet would result in a 30% less chance of getting these tumors. There are also substances produced in the colon by the good bacteria that seem to retard certain pre-cancer factors from developing. They are called short-chain fatty acids (SCFA). See above for description of SCFAs. A high fiber diet increases these substances. So, the combination of dietary fiber and the production of short-chain fatty acids have a clear health benefit. Fiber and Diverticulosis Prolonged, vigorous contraction of the colon over a long period of time may result in diverticulosis.? This increased pressure causes small and, eventually, larger ballooning pockets to form.? These pockets by themselves cause no problem.? However, sometimes they become infected (diverticulitis) or even break open (perforate) causing infection or inflammation within the abdomen (peritonitis).? A high fiber diet increases the bulk in the stool and thereby reduces the pressure within the colon.? By so doing, the formation of pockets may be reduced or possibly even stopped. In the past, many physicians were fearful that seeds as in tomatoes, nuts or berries were harmful and could get inside these pockets and rattle around, causing damage. We now know that this has never been the case and that these foods contain lots of fiber and are actually beneficial for diverticulosis patients. Certain bulking agents such as psyllium are traditional types of bulk producing supplements.? Psyllium is a soluble fiber.? Combining it with insoluble fiber as in wheat bran or corn bran (no gluten) can enhance this bulking effect even more.? A product containing a prebiotic, psyllium and wheat bran is probably a very good combination for bowel regularity. [email or web address]://www.prebiotin.com/ Regularity/Diverticulosis is one such product. Activity:: see above Diet:: see above Discharge Orders Discharge Orders: Discharge Order (Routine); Ordered 08/15/20 Ordered By: Lissette Luna DS: Diagnosis Discharge Diagnosis (1) Family history of colon cancer in mother: Status: Acute (2) History of adenomatous polyp of colon: Status: Inactive (3) Diverticula of colon: Status: Acute
== END 2020-08-16 12:55 | disposition home or self-care (01) ==
PROVIDERS: PCP Family Medicine; Visit Provider Surgery
PROC: 0DJD8ZZ Inspection of Lower Intestinal Tract, Via Natural or Artificial Opening Endoscopic (ICD-10-PCS; CPT 45378; principal; 2020-08-16 10:30)
DX: Z12.11 Encounter for screening for malignant neoplasm of colon (principal); Z80.0 Family history of malignant neoplasm of digestive organs; Z86.010 Personal history of colon polyps; K63.5 Polyp of colon; K62.1 Rectal polyp; K57.30 Diverticulosis of large intestine without perforation or abscess without bleeding
CPT/HCPCS: 45380; 88305; J2001

== ENCOUNTER 2020-10-25 02:13 | Outpatient (CLI) | payer OTHER, SELFPAY ==
[2020-10-25 07:52] LABS: HCT 38.9 % (36.0-46.0); HGB 12.9 g/dL (11.2-15.7); MCHC 33.2 % (32.0-36.0); MCV 93.5 fL (80-95); MPV 9.4 fL (8.0-11.0); Platelet Count 329 10^3/uL (130-400); RBC 4.16 10^6/uL (3.93-5.22); RDW 12.2 % (11.7-14.6); RDW-SD 42.4 fL; WBC 7.27 10^3/uL (4.4-10.8)
[2020-10-25 10:10] LABS: ALT 25 U/L (14-59); AST 10 U/L (15-37); Albumin 3.9 g/dL (3.4-5.0); Alkaline Phosphatase 88 U/L (46-116); Anion Gap 8.4 mmol/L (3-11); BUN 16 mg/dL (7-18); Bilirubin, Total 0.3 mg/dL (0.2-1.0); CO2 28.6 mmol/L (21.0-32.0); CREATININE 0.5 mg/dL (0.55-1.02); Calcium 9.2 mg/dL (8.5-10.1); Calculated LDL 107 mg/dL (<100); Chloride 104 mmol/L (98-107); Cholesterol 186 mg/dL (<200); Glucose 141 mg/dL (74-106); HDL Cholesterol 56 mg/dL (40-60); Potassium 4.6 mmol/L (3.5-5.1); Sodium 141 mmol/L (136-145); Total Protein 7.2 g/dL (6.4-8.2); Triglyceride 116 mg/dL (<150)
== END 2020-10-25 02:14 | disposition home or self-care (01) ==
LOC: LBO 02:13
PROVIDERS: PCP Family Medicine; Visit Provider Family Medicine
DX: Z00.00 Encounter for general adult medical examination without abnormal findings (principal); C54.1 Malignant neoplasm of endometrium; E78.5 Hyperlipidemia, unspecified; I10 Essential (primary) hypertension
CPT/HCPCS: 36415; 80053; 80061; 85027

== ENCOUNTER 2021-05-05 13:38 | Outpatient (REF) | payer OTHER, SELFPAY ==
[2021-05-05 16:05] LABS: Abs Immature Grans 0.02 10^3/uL (0.0-0.06); Absolute Basophil Count 0.07 10^3/uL (0.0-0.2); Absolute Eosinophil Count 0.07 10^3/uL (0.0-0.7); Absolute Lymphocyte Count 1.97 10^3/uL (1.2-3.4); Absolute Neutrophil Count 4.41 10^3/uL (1.2-6.7); HCT 41.8 % (36.0-46.0); HGB 13.4 g/dL (11.2-15.7); Immature Grans % 0.3; MCH 30.4 pg (27.0-33.0); MCHC 32.1 % (32.0-36.0); MCV 94.8 fL (80-95); MPV 10.6 fL (8.0-11.0); Monocytes % 7.1; Neutrophils % 62.6; Nucleated RBC 0 %; Platelet Count 393 10^3/uL (130-400); RBC 4.41 10^6/uL (3.93-5.22); RDW 11.9 % (11.7-14.6); RDW-SD 41.2 fL; WBC 7.04 10^3/uL (4.4-10.8)
[2021-05-05 16:26] LABS: ALT 24 U/L (14-59); AST 11 U/L (15-37); Albumin 4.3 g/dL (3.4-5.0); Alkaline Phosphatase 98 U/L (46-116); Anion Gap 11.3 mmol/L (3-11); BUN 11 mg/dL (7-18); Bilirubin, Total 0.4 mg/dL (0.2-1.0); CO2 26.7 mmol/L (21.0-32.0); CREATININE 0.7 mg/dL (0.55-1.02); Calcium 9.8 mg/dL (8.5-10.1); Chloride 103 mmol/L (98-107); Glucose 112 mg/dL (74-106); Potassium 4.4 mmol/L (3.5-5.1); Sodium 141 mmol/L (136-145); Total Protein 7.9 g/dL (6.4-8.2)
== END 2021-05-05 13:39 | disposition home or self-care (01) ==
LOC: NCHCN 13:38
PROVIDERS: PCP Family Medicine; Visit Provider Family Medicine
DX: R10.32 Left lower quadrant pain (principal)
CPT/HCPCS: 80053; 85025

== ENCOUNTER 2022-04-29 02:35 | Outpatient (CLI) | payer OTHER, SELFPAY ==
--- NOTE | 2022-04-29 07:50 | DI.MAMMO_ITS ---
Exam(s) MAMMO SCREENING EXAM: MAMMO SCREENING CLINICAL HISTORY: SCREENING, Z12.31,WELL ADULT PREVENTATIVE CARE,Z00.00 TECHNIQUE: Mammograms were interpreted according to the usual protocol including computer analysis w ith CAD system, tomosynthesis and C-view imaging. COMPARISON: 2012 through 2020 FINDINGS: The breasts are composed of scattered fibroglandular densities, Breast Density category B. No suspicious masses or suspicious microcalcifications are seen. No skin thickening or abnormal axillary lymph nodes are seen. There has been no significant change from prior exams. IMPRESSION: BI-RADS Category 1, Negative mammogram Yearly screening mammography is recommended. Breast Density - Category B, scattered fibroglandular densities. A negative radiographic report should not delay biopsy if a dominant or clinically suspicious mass is present. Up to ten percent of cancers are not identified on mammography. A negative report may reinforce clinical impression. Adenosis and dense breasts may obscure an underlying neoplasm. False positive reports average 6 to 10%. Patient will receive a letter notifying them of these results.
== END 2022-04-29 02:55 ==
LOC: DI 02:35
PROVIDERS: PCP Family Medicine; Visit Provider Family Medicine
DX: Z12.31 Encounter for screening mammogram for malignant neoplasm of breast (principal)
CPT/HCPCS: 77063; 77067

== ENCOUNTER 2022-04-29 09:40 | Outpatient (CLI) | payer OTHER, SELFPAY ==
[2022-04-29 08:27] LABS: HCT 41.4 % (36.0-46.0); HGB 13.3 g/dL (11.2-15.7); MCHC 32.1 % (32.0-36.0); MCV 94 fL (80-95); MPV 9.5 fL (8.0-11.0); Platelet Count 371 10^3/uL (130-400); RBC 4.43 10^6/uL (3.93-5.22); RDW 11.9 % (11.7-14.6); RDW-SD 41.3 fL; WBC 8.18 10^3/uL (4.4-10.8)
[2022-04-29 08:54] LABS: ALT 20 U/L (14-59); AST 14 U/L (15-37); Albumin 4.1 g/dL (3.4-5.0); Alkaline Phosphatase 88 U/L (46-116); Anion Gap 10.9 mmol/L (3-11); BUN 14 mg/dL (7-18); Bilirubin, Total 0.5 mg/dL (0.2-1.0); CO2 24.1 mmol/L (21.0-32.0); CREATININE 0.7 mg/dL (0.55-1.02); Calcium 9.5 mg/dL (8.5-10.1); Calculated LDL 108 mg/dL (<100); Chloride 104 mmol/L (98-107); Cholesterol 202 mg/dL (<200); Estimated GFR 95.32 (mL/min/1.73m2); Glucose 128 mg/dL (74-106); HDL Cholesterol 73 mg/dL (40-60); Potassium 4.2 mmol/L (3.5-5.1); Sodium 139 mmol/L (136-145); Total Protein 7.8 g/dL (6.4-8.2); Triglyceride 106 mg/dL (<150)
== END 2022-04-29 09:41 | disposition home or self-care (01) ==
PROVIDERS: PCP Family Medicine; Visit Provider Family Medicine
DX: C54.1 Malignant neoplasm of endometrium (principal); I10 Essential (primary) hypertension; Z00.00 Encounter for general adult medical examination without abnormal findings; E78.5 Hyperlipidemia, unspecified
CPT/HCPCS: 36415; 80053; 80061; 82306; 85027

== ENCOUNTER 2023-12-07 02:30 | Outpatient (CLI) | payer OTHER, SELFPAY ==
[2023-12-07 08:37] LABS: HCT 41.6 % (36.0-46.0); HGB 13.9 g/dL (11.2-15.7); MCH 31.2 pg (27.0-33.0); MCHC 33.4 % (32.0-36.0); MCV 94 fL (80-95); Platelet Count 325 10^3/uL (130-400); RBC 4.45 10^6/uL (3.93-5.22); RDW 12.5 % (11.7-14.6); RDW-SD 43.1 fL; WBC 5.67 10^3/uL (4.4-10.8)
[2023-12-07 09:24] LABS: ALT 24 U/L (14-59); AST 13 U/L (15-37); Albumin 3.8 g/dL (3.4-5.0); Alkaline Phosphatase 85 U/L (46-116); Anion Gap 6.9 mmol/L (3-11); BUN 9 mg/dL (7-18); Bilirubin, Total 0.61 mg/dL (0.2-1.0); CO2 29.1 mmol/L (21.0-32.0); CREATININE 0.7 mg/dL (0.55-1.02); Calcium 9.1 mg/dL (8.5-10.1); Calculated LDL 89 mg/dL (<100); Chloride 104 mmol/L (98-107); Cholesterol 179 mg/dL (<200); Estimated GFR 94.15 (mL/min/1.73m2); Glucose 114 mg/dL (74-106); HDL Cholesterol 74 mg/dL (40-60); Potassium 4.9 mmol/L (3.5-5.1); Sodium 140 mmol/L (136-145); Total Protein 7.3 g/dL (6.4-8.2); Triglyceride 84 mg/dL (<150); Vitamin D 25 Total 40.1 ng/mL (30-100)
== END 2023-12-07 02:31 | disposition home or self-care (01) ==
LOC: LBO 02:31
PROVIDERS: PCP Family Medicine; Visit Provider Family Medicine
DX: Z00.00 Encounter for general adult medical examination without abnormal findings (principal); E78.5 Hyperlipidemia, unspecified
CPT/HCPCS: 36415; 80053; 80061; 82306; 85027

== ENCOUNTER 2024-06-28 17:37 | Outpatient (REF) | payer MEDICARE, SELFPAY ==
[2024-06-28 16:38] LABS: Microalb ug/mg Crea 10.9 ug/mg Cr
== END 2024-06-28 17:38 | disposition home or self-care (01) ==
LOC: NCHCN 17:37
PROVIDERS: PCP Family Medicine; Visit Provider Family Medicine
DX: R10.9 Unspecified abdominal pain (principal); E11.9 Type 2 diabetes mellitus without complications
CPT/HCPCS: 87077; 82043; 82570; 87086; 87186

== ENCOUNTER 2024-08-02 00:24 | Outpatient (CLI) | payer MEDICARE, SELFPAY ==
--- NOTE | 2024-08-02 | DI.MAMMO_ITS ---
Exam(s) MAMMO SCREENING EXAM: MAMMO SCREENING CLINICAL HISTORY: SCREENING,Z12.31 TECHNIQUE: Mammograms were interpreted according to the usual protocol including computer analysis w [employer] CAD system, tomosynthesis and C-view imaging. COMPARISON: 2014 through 2022 FINDINGS: The breasts are composed of scattered fibroglandular densities, Breast Density category B. No suspicious masses or suspicious microcalcifications are seen. No skin thickening or abnormal axillary lymph nodes are seen. There has been no significant change from prior exams. IMPRESSION: BI-RADS Category 1, Negative mammogram Yearly screening mammography is recommended. Breast Density - Category B, scattered fibroglandular densities. Breast density Category C or D implies that the patient has dense breast tissue. Dense breast tissue can make it harder to find cancer on a mammogram. Dense breast tissue is also associated with an incr eased risk of breast cancer. This information about the result of the mammogram report was provided to the patient to raise their awareness. Use this report when you speak with the patient about their risks for breast cancer, which includes their family history. At that time, you may recommend additional screening tests (Ultrasoun d or MRI) as these tests may add significant information. A negative radiographic report should not delay biopsy if a dominant or clinically suspicious mass is present. Up to ten percent of cancers are not identified on mammography. A negative report may reinforce clinical impression. Adenosis and dense breasts may obscure an underlying neoplasm. False positive reports average 6 to 10%. Patient will receive a letter notifying them of these results.
== END 2024-08-02 00:44 ==
LOC: DI 00:24
PROVIDERS: PCP Family Medicine; Visit Provider Family Medicine
DX: Z12.31 Encounter for screening mammogram for malignant neoplasm of breast (principal); R92.323 Mammographic fibroglandular density, bilateral breasts
CPT/HCPCS: 77063; 77067

== ENCOUNTER 2024-08-07 02:47 | Outpatient (CLI) | payer MEDICARE, SELFPAY ==
--- NOTE | 2024-08-07 | DI.DEXA_ITS ---
Exam(s) XR DEXA BONE DENSITY W/WO JOSÉ MIGUEL EXAM: XR DEXA BONE DENSITY W/WO JOSÉ MIGUEL CLINICAL HISTORY: Asymptomatic menopausal state, Z78.0; menopause present TECHNIQUE: COMPARISON: DX DEXA BONE DENSITY WITH JOSÉ MIGUEL from 07/27/2017 FINDINGS: Lateral Spine Image: Unremarkable. No compression deformities identified. Left hip: Total T-Score: -0.1. This compares to -0.3 on the prior examination. Total Z-Score: 1.4 T- and Z-scores: There is no evidence of osteoporosis. Lumbar Spine: Total T-Score: -0.6. This compares to -0.4 on the prior examination. Total Z-Score: 1.4 T- and Z-scores: There is no evidence of osteoporosis. IMPRESSION: No evidence of osteoporosis.
== END 2024-08-07 03:07 ==
LOC: DI 02:47
PROVIDERS: PCP Family Medicine; Visit Provider Family Medicine
DX: Z78.0 Asymptomatic menopausal state (principal); Z13.820 Encounter for screening for osteoporosis
CPT/HCPCS: 77080

== ENCOUNTER 2024-11-05 07:40 | Emergency (ER) | payer MEDICARE, SELFPAY ==
[2024-11-05] VITALS (22 sets, daily range): BP systolic 92–112; BP diastolic 34–76; PULSE 43–59; RESP 13–22; TEMP 36.8; O2SAT 89–97
--- NOTE | 2024-11-05 07:55 | W.ED.GENAD ---
Discharge Plan Disposition Patient Disposition: Home Condition: Stable Discharge Details Clinical Impression: N&V (nausea and vomiting), Hypomagnesemia Primary Care Provider: Nika Coker ED Provider: Hawk Laws Home Meds and New Rx's Prescriptions: New ondansetron 4 mg tablet,disintegrating 4 mg PO Q8H PRN (Reason: nausea and vomiting) Qty: 30 0RF Continued ascorbic acid (vitamin C) 500 mg capsule 500 mg PO DAILY cholecalciferol (vitamin D3) 1,000 UNIT capsule 1,000 unit PO DAILY multivitamin [Daily Multi-Vitamin] 1 EACH tablet 1 ea PO DAILY atenolol 50 MG tablet 50 mg PO DAILY atorvastatin 80 MG tablet 80 mg PO DAILY famotidine 40 mg tablet 40 mg PO DAILY PRN metformin 500 mg tablet extended release 24 hr 1,000 mg PO BID losartan 25 mg tablet 25 mg PO DAILY Discharge Instructions Additional Instructions: Your blood work showed that your magnesium was low otherwise there is no significant concerning findings and your CAT scan also did not show any concerning findings. If symptoms are improving this week follow-up with your primary care provider. If you feel significantly more ill or have persistent vomiting despite the nausea medication return to the emergency department for reevaluation. You can try increasing your dietary intake of magnesium binding foods such as soy products such as milk, tofu, legumes, nuts, fruits such as bananas. HPI General Mode of arrival: ambulatory. Date/Time Provider Initiated Documentation: 11/05/24 07:53. Limitations to Documentation: no limitations. Information obtained by: patient. History of Present Illness 69 year old F presents to the emergency department with the chief complaint of n/v/d, described as moderate, Patient started experiencing this hour(s) (3) and it has been constant. No relieving factors improve symptom(s), No exacerbating factors reported . Patient notes no other symptoms.. Patient did receive the following treatments prior to arrival, none Related Data Home Medications ?Medication ?Instructions ?Recorded ?Confirmed cholecalciferol (vitamin D3) 25 1,000 unit PO DAILY 11/16/12 11/05/24 mcg (1,000 unit) capsule multivitamin (Daily Multi-Vitamin 1 ea PO DAILY 07/02/14 11/05/24 tablet) atenolol 50 mg tablet 50 mg PO DAILY 10/03/15 11/05/24 atorvastatin 80 mg tablet 80 mg PO DAILY 10/03/15 11/05/24 famotidine 40 mg tablet 40 mg PO DAILY PRN 05/29/20 11/05/24 losartan 25 mg tablet 25 mg PO DAILY 05/29/20 11/05/24 metformin 500 mg tablet,extended 1,000 mg PO BID 05/29/20 11/05/24 release 24 hr ascorbic acid (vitamin C) 500 mg 500 mg PO DAILY 08/08/20 11/05/24 capsule ondansetron 4 mg disintegrating 4 mg PO Q8H PRN nausea and 11/05/24 tablet vomiting #30 tabs Previous Rx's ?Medication ?Instructions ?Recorded ondansetron 4 mg disintegrating 4 mg PO Q8H PRN nausea and 11/05/24 tablet vomiting #30 tabs Allergies Allergy/AdvReac Type Severity Reaction Status Date / Time Penicillins Allergy Severe Skin Rash Unverified 11/05/24 07:58 lisinopril AdvReac Mild Other (See Verified 11/05/24 07:58 Comment) General Stated Complaint: Abd Prob DIANE: 3 Review of Systems All systems reviewed & are unremarkable except as noted in HPI and below Constitutional Constitutional: Denies chills, Denies fever(s) and Denies weakness Cardiovascular Cardiovascular: Denies chest pain and Denies dyspnea Respiratory Respiratory: Denies cough and Denies dyspnea Gastrointestinal Gastrointestinal: Reports diarrhea, Reports nausea and Reports vomiting Neurologic Neurologic: Denies weakness Exam Const General: no acute distress Orientation: alert [facility] Head: normal to inspection Ears: external ears normal General nose exam: external nose normal Mouth: moist mucous membranes Eyes General: appearance normal, both eyes and all related structures Neck Neck: normal visual inspection Resp Effort & Inspection: normal respiratory effort and able to speak in complete sentences Cardio Rate: regular rate GI Palpation: soft, not firm and no guarding Skin General skin exam: no rashes or lesions noted Neuro General: patient alert and patient oriented x3 Extrem General: normal to inspection Psych Mental Status: mental status grossly normal Course Vital Signs Vital signs: Vital Signs Temperature 36.8 C 11/05/24 07:45 Pulse 50 L 11/05/24 07:45 Respiratory Rate 16 11/05/24 07:45 Blood Pressure 103/73 11/05/24 07:45 Pulse Oximetry 94 11/05/24 07:45 Temperature 36.8 C 11/05/24 07:45 Temperature Source Oral 11/05/24 07:45 Pulse 50 L 11/05/24 07:45 Respiratory Rate 16 11/05/24 07:45 Blood Pressure 103/73 11/05/24 07:45 Blood Pressure Position Supine 11/05/24 07:45 Pulse Oximetry 94 11/05/24 07:45 Oxygen Delivery Method Room Air 11/05/24 07:45 Oxygen Flow Rate 0 11/05/24 07:45 Pain Level 0 11/05/24 07:45 Medical Decision Making 69-year-old female with a history of hysterectomy, hypertension, who comes in with nausea vomiting and loose stools starting this morning. She denies any fevers, no chest pain, no difficulty breathing. She says she felt well yesterday. She denies any drug use, states she has 1 beer a day. She denies any severe abdominal pain but states follow-up intermittent cramping. She is holding an emesis bag, abdomen is soft and has no tenderness currently on exam. Suspect food illness versus gastroenteritis, given her history of hysterectomy will obtain a CT to evaluate for possible small bowel obstruction. Will also check a CBC, CMP and lipase. She has actually no chest pain so I do not feel any workup for ACS is indicated. Labs remarkable for magnesium of 1.0. CT shows no acute significant findings. Patient is feeling significantly better and has no nausea currently. No abdominal tenderness on repeat exam. If she is able to tolerate p.o. after magnesium infusion will plan for discharge. I suspect food related illness versus gastroenteritis. She will follow-up with her PCP if not improving and return precautions given Differential Diagnosis Differential Diagnosis: Gastroenteritis, food illness PFSH All Active Problems (Updated 11/05/24 @ 09:53 by Hawk Laws MD) Hypomagnesemia (Acute) N&V (nausea and vomiting) (Acute) Colon polyp, hyperplastic (Acute ~07/2020) Diverticula of colon (Acute) most of the tics are in the sigmoid. They do carry over all the way to the right colon. Family history of colon cancer in mother (Acute) Medical History (Updated 11/05/24 @ 09:53 by Hawk Laws MD) Endometrial cancer GERD (gastroesophageal reflux disease) Hypertension Type II diabetes mellitus History of adenomatous polyp of colon Hyperlipidemia Benign hypertension Surgical History (Updated 08/28/20 @ 11:32 by Mary Ponce [facility]) Hx of cataract removal with insertion of prosthetic lens History of colonoscopy (~07/2020) Oophrectomy, Both Hysterectomy, Laproscopic endometrial ca Social History Smoking/Tobacco Use Status: Former Tobacco Use Quit Date: 03/29/04 Smoking risk assessment performed?: Yes Alcohol Intake: never Drug use: Never Substance use type: does not use Do you feel safe at home: Yes Do you feel safe in your relationship?: Yes
--- NOTE | 2024-11-05 08:00 | DI.CT_ITS ---
Exam(s) CT ABDOMEN PELVIS W EXAM: CT ABDOMEN PELVIS W CLINICAL HISTORY: n/v, ?obstruction TECHNIQUE: Imaging Protocol: Axial computed tomography images with coronal and sagittal reformatted images were created and reviewed. CONTRAST MATERIAL: Intravenous: Omnipaque 350 Contrast volume:75 mL Oral: No COMPARISON: No exams were available for comparison FINDINGS: ABDOMEN: Lung Bases: Coronary artery calcifications are present. There is atelectasis in the lung bases. Liver: Normal density. There are few tiny hypodensities in the liver which are too small for further characterization but likely reflect small cysts. No suspicious hepatic masses are seen. Portal, Superior Mesenteric, and Splenic Veins: Unremarkable. Gallbladder and Biliary Tract: No radiodense calculus or dilation. Pancreas: Normal density, no abnormal calcifications or inflammatory process. Spleen: There are few hypodensities in the spleen. They may represent small cysts or or hemangiomas. The largest measures 2.1 cm. Adrenals: No masses seen. Kidneys: Normal size, contour and axis. There is a 1.1 cm stone in the midpole of the left kidney. There is no obstructive uropathy. There are small bilateral simple renal cysts. No follow-up is recommended. There is a retroaortic left renal vein. Abdominal Aorta: Abdominal portion non-dilated. Atherosclerotic calcification is present. Bowel: There is mild diverticulosis of the colon, but no evidence of acute diverticulitis. The stomach is incompletely distended limiting evaluation. There is no bowel wall thickening or findings to suggest obstruction. There is no pneumatosis. There is no evidence of appendicitis. Peritoneal Cavity: No ascites, collection or mesenteric inflammatory response. No free air. Lymph Nodes: Within normal limits. Bones: Within normal limits for the patient's age. Soft Tissues: Unremarkable. PELVIS: Bladder: Symmetric distention, no gross wall thickening. Reproductive Organs: The uterus is not visualized. Lymph Nodes: Within normal limits. Bones: Within normal limits for the patient's age. IMPRESSION: 1. No acute abdominal or pelvic process. 2. Colonic diverticulosis without evidence of acute diverticulitis. 3. No evidence of bowel obstruction. 4. Left nephrolithiasis. No obstructive uropathy. RADIATION DOSE DELIVERED: 423.28mGy.cm Total DLP DATA REPOSITORY: All CT scans at this facility are submitted to the National Radiology Data Registry (NRDR) Dose Index Registry (DIR) with the [employer] (A[employer]). RADIATION OPTIMIZATION: All CT scans at this facility use at least one of these dose optimization techniques: automated exposure control; mA and/or kV adjustment per patient size (includes targeted exams where dose is matched to clinical indication); or iterative reconstruction.
[2024-11-05] MEDS: Normal Saline 1,000 ML 1000 ML IV ×2 (08:05→09:01)
[2024-11-05] MEDS: Prochlorperazine 10 MG/2 ML VIAL IVP (08:05)
[2024-11-05 08:07] LABS: BE (Venous) -4 mmol/L (-2-3); HCO3 (Venous) 22 mmol/L (23-28); O2 Sat (Venous) 77 %; TCO2 (Venous) 20 mmol/L (24-29); pCO2 (Venous) 39 mmHg (41-51); pO2 (Venous) 45 mmHg
[2024-11-05 08:10] LABS: Abs Immature Grans 0.03 10^3/uL (0.0-0.06); HCT 37.6 % (36.0-46.0); HGB 12.4 g/dL (11.2-15.7); Immature Grans % 0.5 %; MCH 30.5 pg (27.0-33.0); MCHC 33.0 % (32.0-36.0); MCV 92 fL (80-95); MPV 9.1 fL (8.0-11.0); Platelet Count 261 10^3/uL (130-400); RBC 4.07 10^6/uL (3.93-5.22); RDW 11.9 % (11.7-14.6); RDW-SD 40.6 fL; WBC 6.43 10^3/uL (4.4-10.8)
[2024-11-05 08:26] LABS: ALT 24 U/L (14-59); AST 14 U/L (15-37); Albumin 3.5 g/dL (3.4-5.0); Alkaline Phosphatase 76 U/L (46-116); Anion Gap 12.0 mmol/L (3-11); BUN 21 mg/dL (7-18); Bilirubin, Total 0.5 mg/dL (0.2-1.0); CO2 24.0 mmol/L (21.0-32.0); Calcium 8.4 mg/dL (8.5-10.1); Chloride 104 mmol/L (98-107); Estimated GFR 97.10 (mL/min/1.73m2); Glucose 198 mg/dL (74-106); Lipase 71 U/L (<78); Magnesium 1.0 mg/dL (1.8-2.4); Potassium 3.4 mmol/L (3.5-5.1); Sodium 140 mmol/L (136-145); Total Protein 6.7 g/dL (6.4-8.2)
[2024-11-05] MEDS: Normal Saline - Diluent 50 ML VIAL IJ (08:51)
[2024-11-05] MEDS: Omnipaque 350 MG/ML 100 ML BTL IJ (08:52)
[2024-11-05 08:54] LABS: COVID-19 PCR Negative (Negative); RSV PCR Negative (Negative)
[2024-11-05] MEDS: MAGNESIUM SULFATE 2 GM/50 ML BAG IV_INF (09:00)
== END 2024-11-05 10:37 | disposition home or self-care (01) ==
PROVIDERS: Emergency Provider Emergency Medicine; PCP Family Medicine
DX: R11.2 Nausea with vomiting, unspecified (principal); E83.42 Hypomagnesemia
CPT/HCPCS: 36415; 80053; 82805; 83690; 87637; 96361; 96365; 96366; 96375; 74177; 83735; 85025; 99284; 99285; J0780; J3475; J3490